=== PATIENT | female | born 1980 | race Two or more races ===

== ENCOUNTER 2021-10-19 10:18 | Outpatient (CLI) | payer OTHER ==
[~2021-10-19 10:18] MED LIST: PRENATAL TABLE1 EACH PO
== END 2021-10-19 10:37 | disposition home or self-care (01) ==
LOC: MAMO-SONO 10:18
PROVIDERS: ATTEND Obstetrics & Gynecology
DX: N60.11 Diffuse cystic mastopathy of right breast (principal); E04.8 Other specified nontoxic goiter

== ENCOUNTER 2024-11-11 05:58 | Day surgery (SDC) | payer OTHER ==
[2024-11-06 09:38] LABS: HEMATOCRIT 40.1 % (36.0-45.00); HEMOGLOBIN 13.5 g/dL (12.0-15.00); MEAN CELL VOLUME 79.2 fL (80.00-100.00); MEAN CORPUSCULAR HEMOGLOBIN 26.7 pg (27.00-32.0); MEAN CORPUSCULAR HGB CONC 33.7 g/dl (32.0-36.0); PLATELET COUNT 216 K/uL (150-450); RED BLOOD COUNT 5.07 M/uL (4.00-6.00); RED CELL DISTRIBUTION WIDTH 14.1 % (11.5-14.5)
[2024-11-06 09:56] VITALS: BP 110/78
[2024-11-06 10:05] LABS: PH,URINE 5.5 (5.0-8.0); URINE APPEARANCE Clear; URINE BILIRRUBIN Negative (NEGATIVE); URINE BLOOD Negative; URINE COLOR Yellow; URINE GLUCOSE Negative (NEGATIVE); URINE KETONE Negative (NEGATIVE); URINE LEUKOCYTE Negative; URINE NITRATE Negative; URINE PROTEIN Negative (NEGATIVE); URINE UROBILINOGEN 0.2 E.U./dl
[2024-11-06 10:07] LABS: URINE BACTERIA 17.1 uL (0.0-1933); URINE EPITHELIAL CELLS 3.1 uL (0.0-38.8); URINE WBC 3.9 uL (0.0-23.2)
[2024-11-06 10:20] LABS: ALBUMIN 3.5 gm/dL (3.4-5.0); BILIRUBIN TOTAL 0.74 mg/dL (0.3-1.2); CALCIUM 9.3 mg/dL (8.5-10.1); CREATININE SERUM 0.5 mg/dL (0.55-1.02); GFR 132.83; GLOBULINA 3.5 G/DL (2.4-3.5); POTASSIUM 4.15 mEq/L (3.5-5.1)
[2024-11-06 10:32] LABS: INR 1.02; PARTIAL THROMBOPLASTIN TIME 27.2 SECONDS (22.0-34.0); PROTHROMBIN TIME 11.1 SECONDS (9.0-11.5)
[~2024-11-11] VITALS: Ht 157.5 cm; Wt 81.6 kg
[~2024-11-11 05:58] MED LIST changes: +TAPAZOLE5 MG PO; +TRI-ESTARYLLA1 EACH PO
[2024-11-11] MEDS ORDERED: DEXAMETHASONE SODIUM PHOSPHATE 4 MG/ML VIAL ONE ×2 (11:42→13:47)
[2024-11-11] MEDS ORDERED: MORPHINE SULFATE 4 MG/ML VIAL IV ONE (16:25)
== END 2024-11-11 19:30 | disposition home or self-care (01) ==
LOC: O/R 05:58 → CIR.AMB 05:58 → SURG 05:58 → EDSTATUS 08:30 → SURG 08:30 → CIR.AMB 19:30 → O/R 19:30
PROVIDERS: ATTEND Surgery
DX: C73 Malignant neoplasm of thyroid gland (principal); E05.20 Thyrotoxicosis with toxic multinodular goiter without thyrotoxic crisis or storm